=== PATIENT | female | born 1955 | race Caucasian/White ===

== ENCOUNTER 2016-04-15 17:44 | Emergency (ER) | payer OTHER ==
[~2016-04-15] VITALS: Ht 162.6 cm; Wt 121.1 kg
[~2016-04-15 17:44] MED LIST: CARTIA XT240 MG PO; CORTISONE57 GM TP; LISINOPRIL40 MG PO; PANTOPRAZOLE SO40 MG PO; PRAVASTATIN SOD40 MG PO; WARFARIN SODIU7.5 MG PO
[2016-04-15 19:51] VITALS: BP 175/83
== END 2016-04-15 19:53 | disposition home or self-care (01) ==
LOC: EXP 17:44 → EME 17:44 → EXP 19:53
PROC: 0HQGXZZ Repair Left Hand Skin, External Approach (ICD-10-PCS; principal; 2016-04-15)
DX: S61.211A Laceration without foreign body of left index finger without damage to nail, initial encounter (principal); W23.0XXA Caught, crushed, jammed, or pinched between moving objects, initial encounter; I10 Essential (primary) hypertension; E78.5 Hyperlipidemia, unspecified; Z79.01 Long term (current) use of anticoagulants
CPT/HCPCS: 99281; 99284; S0020